=== PATIENT | male | born 1945 | race Caucasian/White ===

== ENCOUNTER 2017-10-14 07:50 | Inpatient (IN) | payer OTHER, BC ==
--- NOTE | 2017-09-15 11:50 | HP ---
DATE OF ADMISSION: 10/14/2017 DATE OF DICTATION: 08/25/2017 REASON FOR ADMISSION: Complex chronically incarcerated ventral hernia. BRIEF HISTORY: This is a 71-year-old gentleman with a known umbilical hernia. He also developed a large mass above the umbilicus that has progressively enlarged and now causing discomfort. The patient wished to have this repaired. The patient denies any nausea, vomiting, or change in bowel habits. PAST MEDICAL HISTORY: Significant for neuropathy. He has a blood disorder, anxiety and depressive disorder. Denies coronary artery disease, hypertension, diabetes. PAST SURGICAL HISTORY: None. MEDICATIONS: Dilaudid, methadone, sertraline, and gabapentin. SOCIAL HISTORY: Patient is a retired [employer] architect, smokes half-pack of cigarettes per day. Does not drink. ALLERGIES: None. PHYSICAL EXAMINATION: Lungs: Clear. Heart: Regular. Abdomen: Soft, nontender, nondistended. Mildly obese. 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 He has a moderate sized umbilical hernia and loss of the umbilicus due to the hernia. In the mid distance between the xiphoid and the umbilicus is another large hernia. The 2nd hernia is the size of between a baseball and a softball. It is chronically incarcerated as well. The skin overlying this hernia is mildly thinned. IMPRESSION/PLAN: Complex chronically incarcerated ventral hernia. This is a 71-year-old gentleman with an upper midline diastasis and 2 discrete ventral hernias. At this point, we discussed the pros and cons of various surgical approaches and I think he is best approached in an open fashion with an attempt at a retrorectus repair and a preperitoneal placement of his mesh. The 2 hernias are fairly far apart and therefore at the time of surgery, both will be repaired, either independently or concomitantly with one large mesh. Patient is scheduled for repair of complex chronically incarcerated ventral hernia with mesh, bilateral component separation if needed. The indications, alternatives and complications of the procedure were discussed. Questions answered. We will plan on obtaining written consent the day of surgery. TISH CHAMBERS M.D. [id number] cc: Robert Ayala MD
[2017-10-12 16:42] VITALS: BMI 29.0
[2017-10-14] MEDS ORDERED: DEXAMETHASONE SOD PHOSPHATE 4 MG/1 ML VIAL ONE ×2 (08:42→10:55)
[2017-10-14] MEDS ORDERED: ONDANSETRON 4 MG/2 ML VIAL ONE (08:42)
[2017-10-14] MEDS ORDERED: LIDOCAINE HCL 2% 100 MG/5 ML DISP.SYRIN ONE (08:42)
[2017-10-14] MEDS ORDERED: fentaNYL CITRATE 250 MCG/5 ML VIAL ONE (08:43)
[2017-10-14] MEDS ORDERED: PROPOFOL 20 ML ONE (08:43)
[2017-10-14] MEDS ORDERED: MIDAZOLAM HCL 2 MG/2 ML SINGLE DOSE VIAL ONE (08:43)
[2017-10-14] MEDS ORDERED: ROCURONIUM BROMIDE 50 MG/5 ML VIAL ONE ×2 (08:43→10:13)
[2017-10-14] MEDS ORDERED: TAMSULOSIN HCL 0.4 MG CAP.ER.24H (FP) ONE (08:45)
[2017-10-14] MEDS ORDERED: ceFAZolin SODIUM 1 GM VIAL ONE (08:46)
[2017-10-14] MEDS ORDERED: ONDANSETRON 4 MG/2 ML VIAL IVPUSH PRN ×2 (09:10→13:04)
[2017-10-14] MEDS ORDERED: oxyCODONE HCL 5 MG TABLET PO PRN ×3 (09:10→13:04)
[2017-10-14] MEDS ORDERED: LACTATED RINGERS SOLUTION 1,000 ML IV SCH (09:15)
[2017-10-14] MEDS ORDERED: HYDROmorphone HCL CARPU-JECT 2 MG/1 ML DISP.SYRIN ONE ×2 (09:32→11:57)
[2017-10-14] MEDS ORDERED: ceFAZolin SODIUM 1 GM VIAL IVPB ONE (09:45)
[2017-10-14] MEDS ORDERED: ePHEDrine SULFATE 50 MG/1 ML AMPULE ONE (10:09)
[2017-10-14] MEDS ORDERED: BUPIVACAINE HCL/PF 0.25% (2.5MG/ML) 10 ML VIAL ONE (10:56)
[2017-10-14] MEDS ORDERED: NEOSTIGMINE METHYLSULFATE 0.5 MG/ML - 10 ML MDV ONE (11:04)
[2017-10-14] MEDS ORDERED: GLYCOPYRROLATE 0.2 MG/1 ML VIAL ONE (11:04)
[2017-10-14] MEDS: HYDROmorphone HCL CARPU-JECT 1 MG/1 ML DISP.SYRIN IVPUSH PRN ×4 (11:45→13:15)
[2017-10-14] MEDS ORDERED: ACETAMINOPHEN 325 MG TABLET (FP) PO PRN (13:04)
[2017-10-14] MEDS ORDERED: LIDOCAINE HCL 4% PRESERVE-FREE 5 ML AMP ONE ×2 (14:09→22:31)
[2017-10-14] MEDS ORDERED: BACITRACIN 3.5 GM OPTHALMIC OINT TUBE ONE (14:10)
[2017-10-14] MEDS ORDERED: LIDOCAINE HCL 2% JELLY (5 ML/TUBE) ONE (14:11)
[2017-10-14] MEDS: METHADONE HCL 10 MG TABLET PO SCH ×2 (16:28→22:33)
[2017-10-14] MEDS: GABAPENTIN 300 MG CAPSULE (FP) PO SCH ×2 (16:28→22:33)
[2017-10-14] MEDS: D5-1/2NS+20 MEQ KCL - 20 MEQ/1,000 ML INFUS.BAG IV SCH (16:29)
[2017-10-14] MEDS: MORPHINE SULFATE 10 MG/1 ML *VIAL IVPUSH PRN ×2 (17:08→22:32)
--- NOTE | 2017-10-14 19:41 | PN ---
Progress Note (short form) - Note Progress Note: Anesthesiology, PACU, Called by RN in PACU around 2:30 pm. Pat c/o pain in right eye. Describes a "stabb" in his right eye. Denies any previous eye injury. On exam noted slight erythema periorbital. No conjunctival erythema or edema. LEXIE. No Blurry vision. A/P: Cornea abrasion, during perioperative period. Explained to the patient. Washed with NS, and applied 2% Lidicaine Gel. Covered by eye pad. Will follow up tonight and in the am. Will consult apthalmologist in the am if continued problem.
--- NOTE | 2017-10-14 20:02 | PN ---
Progress Note (short form) - Note Progress Note: Anesthesiologist follow up cornea abrasion, Called by RNcarlos c/o pain in right eye. Pat seen and examined at the bedside. Pat describes: "Feels like a scratch in my eye" and feels the pain again. On the exam, no erythema, edema noted. PERRLA. A/P: Cornea abrasion. Lidocaine 4% ,drops in right eye. Bacitracin ophthalmic ointment applied in the right eye, covered by eye pad and taped with no pressure on the eye. Advised the pat to not touch or scratch the eye. Will follow up in the am. Put a Opthalmologist consult request for am if continued pain. Pat reassured.
--- NOTE | 2017-10-14 22:50 | OP ---
DATE OF OPERATION: 10/14/2017 PREOPERATIVE DIAGNOSIS: Chronically incarcerated complex central hernia, abdominal pain, abdominal diastasis. POSTOPERATIVE DIAGNOSIS: Chronically incarcerated complex central hernia, abdominal pain, abdominal diastasis. PROCEDURE: Open bilateral component separation, repair of complex chronically incarcerated ventral hernia with mesh, partial omentectomy, rectus sheath block. SURGEON: Arcadio Mccurdy M.D. OPERATION SPECIALIST: Mal King M.D. ANESTHESIOLOGIST: Aaorn Loyola M.D. ANESTHESIA: General. ESTIMATED BLOOD LOSS: Minimal. SPECIMEN: Portion of omentum and hernia sac. INDICATION FOR PROCEDURE: This is a 72-year-old gentleman with a large chronically incarcerated ventral hernia, two discrete hernias: one in the epigastrium and then another one at the level of the umbilicus. The upper hernia is causing him discomfort and abdominal pain, and therefore he wishes to have these repaired. DESCRIPTION OF PROCEDURE: Patient is identified, and appropriately positioned on operating room table. After placement of general anesthesia, the abdomen was prepped and draped in the usual sterile fashion with Chloraprep. A midline incision was made, overlying the hernia and deepened through the subcutaneous tissue. The hernia was dissected free from the subcutaneous tissue, down to the level of the fascia. The hernia sac was opened, and the superior hernia contained a slider. Therefore, a portion of the omentum was serially clamped, divided, and tied with 0 Vicryl suture. The hernia sac was then oversewn and reduced. The inferior sac just contained fat. The rectus muscle on the right side identified. The posterior sheath subsequently divided sharply. The retrorectus space was then developed bluntly out laterally towards the obliques. In doing so, the perforating vessels encountered and the fascia just medial to the perforating vessels was subsequently scored and divided sharply. The transversus muscle and released from the obliques as well as the rectus at this level. This myofascial separation continued approximately 3 to 4 inches above and below the actual defect. A similar approach was used on the left side. On the left side, the posterior rectus sheath identified, divided sharply. The space subsequently developed bluntly, and the perforating vessels identified. Just medial to the perforating vessels, the fascia was then subsequently divided sharply. The myofascial separation ensued approximately 3 to 4 inches above and below the defect, and this allowed placement of the mesh well into the obliques. The transversus was now able to be mobilized medially. This patient required bilateral component separation due to the frayed tissue that he had at the level of the defects and the size of the defects. The transversus/posterior sheath was then put together with a running locking 3-0 Maxon suture. The defect measured and a Talib Bio 16 x 20 was sewn to a 30 x 30 piece of Versatex. This was done with interrupted 3-0 Vicryl sutures. The Talib Bio was placed over the transversus, and the Versatex was placed against the rectus muscle. The mesh was fanned out laterally, superiorly, and inferiorly to cover the defect, and then anchored with a interrupted Reliatack sutures. The subcutaneous space was subsequently irrigated as well as the mesh. The operative field examined and noted to be hemostatic. At this point, the rectus sheath block was then performed using a total of 40 mL of 0.25% Marcaine with 4 mg of Decadron. The fascia in the midline was then reapproximated with interrupted 0 PDS sutures. The sutures were placed in a 4 to 1 type ratio with 5 mm distance bites and 1 cm back bites. The subcutaneous space irrigated. Thought was given to placement of a drain, but given his other comorbidities, and overall body habitus, and small subcutaneous spacing, I thought it best not to place a drain. The dermis was then reapproximated with interrupted inverted 3-0 chromic sutures, and the skin closed with jean claude followed by Dermabond. The anchoring system used was the Reliatack, the mesh used was the Versatex 30 x 30 along with a 16 x 20 Talib Bio. At the conclusion of this count, sponge and needle counts were correct. ATTESTATION: Brief operative note was handwritten on the preprinted form. [facility] will be queried prior to giving any narcotics. Onesimo ESQUIVEL [id number] cc: Onesimo Mike
--- NOTE | 2017-10-14 23:06 | PN ---
Progress Note (short form) - Note Progress Note: Anesthesiologist note Called to the floor by RN. Pat C/O right eye pain. Pat seen and examined at bed side. C/O sharp pain. On exam no erythema, unchanged status. A/p: Cornea abrasion. Applied bacitracin ophthalmic ointment. also d/w opthalmologist Dr. Aguillon over the phone. Recommending continued Bacitracin ophthalmic ointment Q 4 hours and cold compress. Pat is already on analgetic medication. Will follow up in the morning.
[2017-10-14] MEDS: BACITRACIN 3.5 GM OPTHALMIC OINT TUBE OD SCH (23:56)
[2017-10-15] MEDS: D5-1/2NS+20 MEQ KCL - 20 MEQ/1,000 ML INFUS.BAG IV SCH (02:06)
[2017-10-15] MEDS: BACITRACIN 3.5 GM OPTHALMIC OINT TUBE OD SCH ×2 (02:10→06:01)
[2017-10-15] MEDS: MORPHINE SULFATE 10 MG/1 ML *VIAL IVPUSH PRN (05:52)
[2017-10-15] MEDS: GABAPENTIN 300 MG CAPSULE (FP) PO SCH (06:33)
[2017-10-15 07:08] VITALS: PULSE 68; TEMP 97.7
--- NOTE | 2017-10-15 08:18 | PN ---
Progress Note (short form) - Note Progress Note: Anesthesia post op note POD#1 S/P open bilateral component separation, repair of chronically incarcerated hernia with mesh. partial omentectomy. Rectus sheath block. pat seen and examined. No complaint regarding surgical pain. Pain controlled with Dilaudid and methadone and Tylenol. Pat c/o right eye pain. have been treated with cold compress and bacitracin ointment. On physicall exam: AAOX3. VSS. Right eye, PERRLA. No erythema or edema. A/P: Except the cornea abrasion no post anesthesia complications. Informed the patient about healing of cornea abrasion, to continue with Bacitracin ophthalmic ointment and cold compress.. Offered Opthalmologist consult prior to discharge, but patient prefers to follow up as an out patient with his opthalmologist. Dr. Soto informed. signed off.
--- NOTE | 2017-10-15 09:12 | DS ---
DATE OF ADMISSION: 10/14/2017 DATE OF DISCHARGE: 10/15/2017 ADMITTING DIAGNOSIS: Complex ventral hernia. DISCHARGE DIAGNOSIS: Complex ventral hernia. BRIEF HISTORY: This is a 72-year-old male who was admitted to [facility] for repair of a complex ventral hernia utilizing mesh and component separation technique. Please reference Dr. Arcadio Mccurdy's operative report for further details. He is being discharged home today, October 15, tolerating diet and voiding and ambulating. He will go home, resuming his usual home medications which include methadone as well as oral Dilaudid. He will not get any new additional pain medications. He will resume his other medications as well. He will follow up with Dr. Mccurdy in approximately 2 weeks' time for his postoperative check. He is okay to walk, okay to climb stairs. He is okay to shower. He will not lift anything more than 20 pounds. He is on regular diet. DO CONCHITA [id number]
[2017-10-15] MEDS ORDERED: PT OWN MED DRAWER 7, Y5N ONE (09:16)
[2017-10-15] MEDS: METHADONE HCL 10 MG TABLET PO SCH (09:21)
[2017-10-15] MEDS ORDERED: PANTOPRAZOLE SODIUM 40 MG VIAL IVPUSH SCH (10:00)
[2017-10-15] MEDS ORDERED: ENOXAPARIN NA (PORCINE) 40 MG/0.4 ML DISP.SYRIN SQ SCH (10:00)
[2017-10-15 11:02] VITALS: BP 136/72
--- NOTE | 2017-10-16 12:29 | PN ---
Progress Note (short form) - Note Progress Note: surgery pt in severe pain at home. out dilaudid. one time rx #21 given. futher pain meds will be via pain commercial collections specialist.
--- NOTE | 2017-10-20 17:38 | PATH ---
Surgical Pathology Report Patient Name: NU SOTO Med. Rec. #: [id number] /Age/Gender: 1945 (Age: 72) / M Account: [id number] Location: [facility] MED/SURG Taken: 10/14/2017 Received: 10/14/2017 Reported: 10/20/2017 Physicians: Arcadio Mccurdy Specimen(s) Received PORTION OF OMENTUM Clinical History Ventral hernia Final Diagnosis PORTION OF OMENTUM, VENTRAL HERNIA REPAIR: MESOTHELIAL-LINED FIBROMEMBRANOUS AND OMENTAL ADIPOSE SOFT TISSUE CONSISTENT WITH HERNIA SAC AND CONTENTS. Electronically Signed Mesha White M.D. Gross Description Received in formalin labeled "portion of omentum," is a 4.5 x 4.0 x 1.7 cm portion of curry-yuan fibromembranous tissue with abundant attached adipose tissue, consistent with a hernia sac. Residential Worker sections are submitted in one cassette. 10/14/2017 saudi10/14/2017
== END 2017-10-15 12:06 | disposition home or self-care (01) | DRG 353 ==
LOC: JASUSAT 07:50 → JSAMEDAYSX 13:04 → J8W 15:09
PROVIDERS: ADMIT Surgery; ATTEND Surgery
PROC: 0DBU0ZZ Excision of Omentum, Open Approach (ICD-10-PCS; 2017-10-14)
PROC: 0WUF0JZ Supplement Abdominal Wall with Synthetic Substitute, Open Approach (ICD-10-PCS; principal; 2017-10-14 09:30)
DX: K43.6 Other and unspecified ventral hernia with obstruction, without gangrene (principal); Q79.59 Other congenital malformations of abdominal wall; H59.88 Other intraoperative complications of eye and adnexa, not elsewhere classified; G62.9 Polyneuropathy, unspecified; F41.8 Other specified anxiety disorders; F17.210 Nicotine dependence, cigarettes, uncomplicated; Y84.8 Other medical procedures as the cause of abnormal reaction of the patient, or of later complication, without mention of misadventure at the time of the procedure; S05.01XA Injury of conjunctiva and corneal abrasion without foreign body, right eye, initial encounter; X58.XXXA Exposure to other specified factors, initial encounter; Y92.238 Other place in hospital as the place of occurrence of the external cause
CPT/HCPCS: 88302-TC; 94010; 94760